=== PATIENT | male | born 1990 | race Caucasian/White ===

== ENCOUNTER 2018-08-02 22:25 | Emergency (ER) | payer BC, SELFPAY ==
[2018-08-02 22:28] VITALS: BP 155/84; PULSE 93; RESP 18; TEMP 36.7; O2SAT 96
--- NOTE | 2018-08-02 22:35 | DI.RAD_ITS ---
SYMPTOM/DIAGNOSIS: FELL, PAIN SACRUM AND COCCYX: Three views were obtained. The SI joints appear well maintained as visualized. There is no acute fracture seen.
--- NOTE | 2018-08-02 22:37 | ED.GENADUL_ITS ---
Discharge Plan Disposition Patient Disposition: HOME Condition: Improving Discharge Details Chief Complaint: Orthopedic Clinical Impression: Coccyx contusion Primary Care Provider: Russell Fernandes ED Provider: Jarret Sapp Home Meds and New Rx's Prescriptions: No Action No Known Home Meds RF: 0 Discharge Instructions Instructions: Contusion in Adults (ED) Additional Instructions: Please obtain an inflatable doughnut shaped cushion to ease pressure on her tailbone. May continue Tylenol and/or ibuprofen as needed for pain. Next dose tomorrow morning. Return for any acute concerns Medical Decision Making 27-year-old male presents with tailbone pain after slip and fall in driveway 1 week ago. No motor weakness or numbness. He is tender in the coccygeal region. Referred for Xray: No acute finding. Patient will use a inflatable donut to ease pressure on his sacrum. Discussed home management as well as follow-up with them. He is stable for outpatient trial at this time HPI General Mode of arrival: ambulatory . Date/Time Provider Initiated Documentation: 08/02/18 22:27 . Limitations to Documentation: no limitations . Information obtained by: patient and family . History of Present Illness 27 year old M presents to the emergency department with the chief complaint of Tailbone pain since fall, described as moderate, Quality is described as aching, and is localized to the back. Patient reports no radiation. Patient started experiencing this day(s) and it has been intermittent. No relieving factors improve symptom(s), No exacerbating factors reported . Patient notes no other symptoms.; denies chest pain and headaches. Patient did receive the following treatments prior to arrival, NSAID Related Data Home Medications Medication Instructions Recorded Confirmed Unknown [No Known Home Meds] 08/09/15 08/02/18 Allergies Allergy/AdvReac Type Severity Reaction Status Date / Time No Known Allergies Allergy Unverified 08/02/18 22:27 General Stated Complaint: Orthopedic HALEY: 4 Review of Systems Review of Systems No numbness, tingling, weakness. 6 systems reviewed and otherwise neg PFSH Family History Mother No problems noted. Father No problems noted. Grandfather Diabetes Heart disease Stroke Grandfather No problems noted. Grandmother No problems noted. Grandmother Neoplasm Son No problems noted. Social History Smoking/Tobacco Use Status: Current every day Tobacco Type: smokeless tobacco Alcohol Intake: never Drug use: Never Do you feel safe at home: Yes Do you feel safe in your relationship?: Yes Exam Narrative Exam Narrative: GEN: awake, alert, oriented 3. Pleasant, well groomed, interactive. HEAD: Normocephalic, atraumatic ENT: Mucous membranes moist, oropharynx unremarkable, External ear exam unremarkable EYES: PERRL, EOMI NECK: Full ROM, no YAMILA, no menigismus CHEST/RESP: Nontender ABDOMEN: Soft, nontender, no mass. +Bowel sounds. Back exam nontender with the exception of coccyx which is tender to palpation. EXT: Full ROM, no edema, no rash. Normal motor and gait Neuro: Grossly normal neurologic exam, conversant, interactive. Psych: Speech fluent, thoughts congruent, affect normal Course Vital Signs Temperature 36.7 C 08/02/18 22:28 Pulse 93 H 08/02/18 22:28 Respiratory Rate 18 08/02/18 22:28 Blood Pressure 155/84 H 08/02/18 22:28 Pulse Oximetry 96 08/02/18 22:28 Temperature 36.7 C 08/02/18 22:28 Temperature Source Temporal Artery Scan 08/02/18 22:28 Pulse 93 H 08/02/18 22:28 Respiratory Rate 18 08/02/18 22:28 Respiratory Effort 08/02/18 22:28 Blood Pressure 155/84 H 08/02/18 22:28 Blood Pressure Position Sitting 08/02/18 22:28 Pulse Oximetry 96 08/02/18 22:28 Oxygen Delivery Method Room Air 08/02/18 22:28 Oxygen Flow Rate 0 08/02/18 22:28 Pain Level 7 08/02/18 22:28
--- NOTE | 2018-08-02 23:02 | DI.VRAD_ITS ---
EXAM: XR Sacrum and Coccyx, 2 or More Views EXAM DATE/TIME: 08/02/2018 10:35 PM CLINICAL HISTORY: 27 years old, male; Pain; Pain in coccyx area; Patient HX: Pain after fall TECHNIQUE: Imaging protocol: XR of the sacrum and coccyx, 2 or more views. COMPARISON: No relevant prior studies available. FINDINGS: Bones/joints: Normal. No acute fracture. Soft tissues: Normal. IMPRESSION: No acute findings. Dictated and Authenticated by: Jacob Keller MD. Ordering:KIRAN Wheat MD
[2018-08-02] MEDS: Ketorolac 10 MG TAB PO (23:05)
== END 2018-08-02 23:06 | disposition home or self-care (01) ==
PROVIDERS: Emergency Provider Emergency Medicine; PCP Family Medicine
DX: S30.0XXA Contusion of lower back and pelvis, initial encounter (principal); W00.0XXA Fall on same level due to ice and snow, initial encounter
CPT/HCPCS: 99283; 72220

== ENCOUNTER 2019-08-18 11:24 | Emergency (ER) | payer BC, SELFPAY ==
[2019-08-18 11:29] VITALS: BP 152/80; PULSE 87; RESP 18; TEMP 36.2; O2SAT 98
--- NOTE | 2019-08-18 11:31 | ED.GENADUL_ITS ---
Discharge Plan Disposition Patient Disposition: HOME Condition: Good Discharge Details Chief Complaint: Orthopedic Clinical Impression: Right ankle sprain Primary Care Provider: Russell Fernandes ED Provider: Milad Ascencio Home Meds and New Rx's Prescriptions: No Action No Known Home Meds RF: 0 Discharge Instructions Instructions: Ankle Sprain (ED) Additional Instructions: At this time there is no evidence of fracture on your x-ray. Did recommend that you take 1000 mg of Tylenol every 6 hours and 800 mg of ibuprofen every 6 hours for control of pain and swelling. These are the maximum doses, do not increase it otherwise. Please use ice as often as possible,the crutches to take weight off the foot. You can also corn picker an ankle brace at the local pharmacies. I would expect your symptoms would improve over the next 7 to 14 days, however if they do not you may require further follow-up with an orthopedic brace maker. If you notice any worsening of your symptoms, or any new symptoms such as vomiting, diarrhea, fever, chills, shortness of breath, chest pain, numbness, weakness, or fainting , please return immediately to the emergency department for re evaluation. Please follow up with your primary care provider as soon as possible for reassessment and reevaluation. As always, it was a pleasure participating in your medical care today. Stand Alone Forms: Work Release Referrals: Russell Fernandes [Primary Care Provider] - Medical Decision Making 28-year-old male presents for right ankle pain. Yesterday evening he rolled his right ankle, causing pain in the lateral malleolus just inferior. Patient rolled his ankle yesterday, causing mild pain, minimal swelling, mild pain at the lateral malleoli, no evidence of deformity neurovascular compromise or other abnormality. Suspect sprain, will get x-ray to rule out acute fracture. Will give crutches 12:03 PM X-ray results are negative for acute fracture. Patient will be given crutches, recommend NSAIDs and ice at home. Discussed red flags which to return. I have extensively reviewed the treatment plan and discharge instructions with the patient. I have addressed all patient concerns at this time. The patient was made aware of what symptoms to monitor for that would warrant a return to the emergency department. Discussed the plan with the patient, they demonstrate verbal understanding and agreement with our assessment and plan at this time. EXAM: XR ANKLE RT COMPLETE CLINICAL HISTORY: right ankle pain after inversion. TECHNIQUE: 2D digital imaging was performed. COMPARISON: No exams were available for comparison FINDINGS: BONES: No acute fracture is identified. There is no evidence of bony destruction. There is a small enthesophyte at the Achilles insertion site. JOINTS: The ankle mortise is normally aligned. SOFT TISSUE: Normal. IMPRESSION: No acute fracture or dislocation. DATA REPOSITORY: RADIATION DOSE DELIVERED: [facility] General Date/Time Provider Initiated Documentation: 08/18/19 11:25 . HPI Narrative: 28-year-old male with no significant past medical history presents for right ankle pain. Last night patient slipped on the last step of a staircase, inverted his ankle, subsequently had pain in the lateral aspect. Pain is worsened with movement, and bearing weight. Improved by nothing. Denies numbness tingling or weakness. Denies any knee pain. No other complaints at this time. No other modifying factors. No recent NSAID therapy. Related Data Home Medications Medication Instructions Recorded Confirmed Unknown [No Known Home Meds] 08/09/15 08/18/19 Allergies Allergy/AdvReac Type Severity Reaction Status Date / Time No Known Allergies Allergy Unverified 08/18/19 11:32 General Stated Complaint: Orthopedic HALEY: 4 Review of Systems All systems reviewed & are unremarkable except as noted in HPI and below PFSH Family History Mother No problems noted. Father No problems noted. Grandfather Diabetes Heart disease Stroke Grandfather No problems noted. Grandmother No problems noted. Grandmother Neoplasm BREAST Son No problems noted. Social History Smoking/Tobacco Use Status: Current-Occasional Tobacco Type: smokeless tobacco Alcohol Intake: never Drug use: Never Do you feel safe at home: Yes Do you feel safe in your relationship?: Yes Exam Narrative Exam Narrative: 1.Const: Well-nourished, Well-developed, appearing stated age 2.Eyes: PERRL, no conjunctival injection, and symmetrical lids. 3.ENT: Atraumatic external nose and ears. Moist MM. Neck: Symmetric, trachea midline, No thyromegaly. 4.CVS: +S1/S2, No murmurs or gallops. Peripheral pulses 2+ and equal in all extremities. Brisk capillary refill in all extremities. 5.RESP: Unlabored respiratory effort. Clear to auscultation bilaterally. No wheezes rales or rhonchi 6.GI: Soft,Nondistended 7.MSK: Extremities are unremarkable. No evidence of dislocation, or gross deformity. Patient's right ankle demonstrates minimal swelling over the lateral malleolus, and mild tenderness the anterior and posterior aspect of the lateral malleolus just inferior to the base. No pain over the base of the foot, calcaneus, or toes. Patient is able to wiggle toes well, minimal pain with flexion extension, worse pain with eversion and inversion of the foot. The knee is stable to varus, valgus. No deformity. Patellar grind test is negative. Francheska test is negative for pain. No ttp to the patella, tibial plateau, or fibular head. 8.Skin: Warm, Dry. No rashes or lesions. 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 Sensation grossly intact, no focal neurologic deficits. 10.Psych: (AAO) x3. Appropriate mood and affect Course Vital Signs Vital signs: Vital Signs Temperature 36.2 C L 08/18/19 11:29 Pulse 87 08/18/19 11:29 Respiratory Rate 18 08/18/19 11:29 Blood Pressure 152/80 H 08/18/19 11:29 Pulse Oximetry 98 08/18/19 11:29 Temperature 36.2 C L 08/18/19 11:29 Temperature Source Skin 08/18/19 11:29 Pulse 87 08/18/19 11:29 Respiratory Rate 18 08/18/19 11:29 Blood Pressure 152/80 H 08/18/19 11:29 Blood Pressure Position Sitting 08/18/19 11:29 Pulse Oximetry 98 08/18/19 11:29
== END 2019-08-18 12:06 | disposition home or self-care (01) ==
PROVIDERS: Emergency Provider Student in an Organized Health Care Education/Training Program; PCP Family Medicine
DX: S93.401A Sprain of unspecified ligament of right ankle, initial encounter (principal); X50.1XXA Overexertion from prolonged static or awkward postures, initial encounter
CPT/HCPCS: 99283; 73610; E0114

== ENCOUNTER 2022-10-21 14:22 | Emergency (ER) | payer BC, SELFPAY ==
[2022-10-21 14:28] VITALS: BP 146/86; PULSE 103; RESP 19; TEMP 36.8; O2SAT 99
--- NOTE | 2022-10-21 15:00 | DI.RAD_ITS ---
Exam(s) XR ANKLE RT COMPLETE EXAM: XR ANKLE RT COMPLETE CLINICAL HISTORY: right ankle pain, lateral mal. TECHNIQUE: 2D digital imaging was performed. Three views. COMPARISON: CR XR ANKLE RT COMPLETE from 08/18/2019 FINDINGS: BONES: No acute fracture is present. No bony destructive lesion is seen. Spur at Achilles insertio n on the calcaneus. JOINTS: The ankle mortise is normally aligned. SOFT TISSUE: Normal. IMPRESSION: No acute abnormality. DATA REPOSITORY: RADIATION DOSE DELIVERED:
--- NOTE | 2022-10-21 15:07 | ED.GENADUL_ITS ---
Discharge Plan Disposition Patient Disposition: Home Discharge Details Chief Complaint: Orthopedic Clinical Impression: Ankle pain Primary Care Provider: Unknown,Unknown ED Provider: Harrison Prakash Home Meds and New Rx's Prescriptions: No Action No Known Home Meds Discharge Instructions Instructions: Ankle Sprain (ED) Additional Instructions: Please continue with ibuprofen and/or acetaminophen at home for pain and swelling. Ice and elevate limb. Rest. Please return to the emergency department for any worsening symptoms Stand Alone Forms: Work Release Medical Decision Making 32-year-old male presents with 3 days of ankle pain lateral aspect of right ankle, does not remember specific injury, no fevers chills nausea vomiting or systemic signs of illness, afebrile nontoxic range of motion intact strength and sensation intact soft compartments, slight induration overlying lateral malleoli region, Zavaleta's test showing intact Achilles function. Ambulatory without assistance. Consider sprain versus strain versus contusion versus must consider Lyme arthritis given single joint involvement without definitive injury pattern. Low suspicion for DVT or septic joint. Will obtain screening x-ray, tick panel, Toradol anti-inflammatory close reassessment likely home with return precautions 16: 13 resting comfortably no acute distress. X-ray negative for fracture or dislocation. Chronic appearing bone spur at Achilles insertion point on calcaneus. Plan will be to trial acetaminophen ibuprofen elevation ice at home, rest over the next couple of days, will wait for tick panel results to result; home care instructions and strict return precautions given HPI General Date/Time Provider Initiated Documentation: 10/21/22 14:57 . HPI Narrative: 32 yr old male present with right ankle pain for the past couple of days, does not remember specific injury. Pain to lateral aspect of ankle. Denies fevers chills nausea or vomiting. No other systemic signs of illness. He is able to walk and has been working on ankle Related Data Home Medications Medication Instructions Recorded Confirmed Unknown [No Known Home Meds] 08/09/15 10/21/22 Allergies Allergy/AdvReac Type Severity Reaction Status Date / Time No Known Allergies Allergy Unverified 10/21/22 14:31 General Stated Complaint: Orthopedic HALEY: 4 Review of Systems Narrative: Review of Systems Constitutional: negative Eyes: negative ENT: negative Cardiovascular: negative Respiratory: negative Gastrointestinal: negative : negative Musculoskeletal: Ankle pain Skin: negative Neurologic: negative Psych: negative PFSH All Active Problems (Updated 10/21/22 @ 16:15 by Harrison Prakash MD) Ankle pain (Acute) Family History Mother No problems noted. Father No problems noted. Grandfather Diabetes Heart disease Stroke Grandfather No problems noted. Grandmother No problems noted. Grandmother Neoplasm BREAST Son No problems noted. Social History Smoking/Tobacco Use Status: Current-Occasional Tobacco Type: smokeless tobacco Smoking risk assessment performed?: Yes Alcohol Intake: never Drug use: Never Substance use type: does not use Do you feel safe at home: Yes Do you feel safe in your relationship?: Yes Exam Narrative Exam Narrative: Physical Examination General: alert, awake, cooperative, resting comfortably, no acute distress Skin: no lesions, rashes or trauma appreciated Neuro: AAOx3, normal speech, moving all extremities Extremities: Full range of motion upper and lower extremities, flexion extension and ankle intact, Zavaleta's test normal for Achilles function, slight induration overlying lateral malleolus no fluctuance or lymphangitic streaking, warm well perfused extremity soft compartments, DP pulse intact sensation in lower extremity intact. Ambulatory without assistance. Course Vital Signs Vital signs: Vital Signs Temperature 36.8 C 10/21/22 14:28 Pulse 103 H 10/21/22 14:28 Respiratory Rate 10/21/22 14:28 Blood Pressure 146/86 H 10/21/22 14:28 Pulse Oximetry 99 10/21/22 14:28 Temperature 36.8 C 10/21/22 14:28 Temperature Source Temporal Artery Scan 10/21/22 14:28 Pulse 103 H 10/21/22 14:28 Respiratory Rate 10/21/22 14:28 Respiratory Effort Normal 10/21/22 14:30 Blood Pressure 146/86 H 10/21/22 14:28 Blood Pressure Position Sitting 10/21/22 14:28 Pulse Oximetry 99 10/21/22 14:28 Oxygen Delivery Method Room Air 10/21/22 14:28 Oxygen Flow Rate 0 10/21/22 14:28 Pain Level 5 10/21/22 14:28
[2022-10-21 16:29] VITALS: BP 138/80; PULSE 87; RESP 18; TEMP 36.2; O2SAT 98
[2022-10-23 11:28] LABS: Lyme Ab w Rflx to Lyme Confirm Negative (Negative)
[2022-10-25 08:29] LABS: Anaplasma phagocytophilum Negative (Negative); B. miyamotoi PCR Negative (Negative); Babesia divergens/MO-1 Negative (Negative); Babesia duncani Negative (Negative); Babesia microti Negative (Negative); Ehrlichia chaffeensis Negative (Negative); Ehrlichia ewingii/canis Negative (Negative); Ehrlichia muris eauclairensis Negative (Negative)
== END 2022-10-21 17:14 | disposition home or self-care (01) ==
PROVIDERS: Emergency Provider Emergency Medicine
DX: M25.571 Pain in right ankle and joints of right foot (principal)
CPT/HCPCS: 87798; 96372; 99284; 73610; 86618

== ENCOUNTER 2023-08-05 15:49 | Emergency (ER) | payer BC, SELFPAY ==
[2023-08-05 15:50] VITALS: BP 175/87; PULSE 101; RESP 20; TEMP 36.1; O2SAT 97
--- NOTE | 2023-08-05 16:00 | DI.RAD_ITS ---
Exam(s) XR ANKLE RT COMPLETE EXAM: XR ANKLE RT COMPLETE CLINICAL HISTORY: ankle swelling. TECHNIQUE: 2D digital imaging was performed of the right ankle. Three images were obtained. AP, la teral and oblique views were obtained. COMPARISON: CR XR ANKLE RT COMPLETE from 10/21/2022 FINDINGS: BONES: No acute fracture is present. No bony destructive lesion is seen. There is a small enthesophy te at the posterior calcaneus. JOINTS: The ankle mortise is normally aligned. SOFT TISSUE: Soft tissue swelling about the ankle particularly medially. IMPRESSION: No acute fracture or dislocation. DATA REPOSITORY: RADIATION DOSE DELIVERED:
[2023-08-05 16:30] LABS: Abs Immature Grans 0.04 10^3/uL (0.0-0.06); Absolute Basophil Count 0.05 10^3/uL (0.0-0.2); Absolute Eosinophil Count 0.19 10^3/uL (0.0-0.7); Absolute Lymphocyte Count 2.25 10^3/uL (1.2-3.4); Absolute Neutrophil Count 9.38 10^3/uL (1.2-6.7); Basophils % 0.4; Eosinophils % 1.5; HCT 46.9 % (40.0-50.0); HGB 16.4 g/dL (13.5-17.5); Immature Grans % 0.3; Lymphocytes % 17.9; MCH 32.3 pg (27.0-33.0); MCV 92 fL (80-95); MPV 10.3 fL (8.0-11.0); Monocytes % 5.3; Neutrophils % 74.6; Platelet Count 282 10^3/uL (130-400); RBC 5.08 10^6/uL (4.36-5.78); RDW 12.3 % (11.8-14.1); RDW-SD 41.9 fL; WBC 12.57 10^3/uL (4.4-10.8)
[2023-08-05 16:31] LABS: Absolute Monocyte Count 0.67 10^3/uL (0.1-0.8); ESR 17 mm/hr (0-15)
[2023-08-05 16:43] LABS: C-Reactive Protein 2.32 mg/dL (<or=0.5); Uric Acid 9.1 mg/dL (3.5-7.2)
--- NOTE | 2023-08-05 17:04 | NUR.NOTE ---
Referral given to Care Managers to help Pt find a Primary Care Provider as soon as available.
[2023-08-05 17:22] VITALS: BP 161/78; PULSE 98; O2SAT 97
--- NOTE | 2023-08-05 20:32 | ED.GENADUL_ITS ---
Discharge Plan Disposition Patient Disposition: Home Condition: Stable Discharge Details Clinical Impression: Gout, Acute ankle pain Primary Care Provider: Unknown,Unknown ED Provider: Yin Lewis Home Meds and New Rx's Prescriptions: New colchicine 0.6 mg capsule 1.2 mg PO DAILY Qty: 3 0RF Rx Instructions: take 2 caps x1 and them 1 cap one hour later Discharge Instructions Instructions: Gout (ED) Additional Instructions: take colchicine 2 tabs x1 and then 1 tab one hour later wear boot as needed for comfort should you have persistent pain and swelling> 3 days or develop redness, swelling, worsening pain or fever, please return immediately for reassessment I placed you on the list to follow-up with her primary care physician Refer to the enclose packet information about diet changes Stand Alone Forms: Work Release Discharge Data Discharge Date/Time-TO BE ENTERED AT DEPARTURE: 08/05/23 17:25 HPI General Date/Time Provider Initiated Documentation: 08/05/23 16:01 . HPI Narrative: This 32-year-old male presents with report of right ankle pain that started over the weekend came on suddenly and worse today. Denies any fever or chills. States pain with ambulation and movement. States he had a similar episode several months ago. Denies known trauma. Denies history of illicit drug use or alcohol consumption. Does not have a PCP. Eats red meat frequently. Denies tobacco abuse. Denies any calf pain or swelling. Related Data Home Medications Medication Instructions Recorded Confirmed colchicine 0.6 mg capsule 1.2 mg (2 x 0.6 mg) PO DAILY #3 08/05/23 caps Previous Rx's Medication Instructions Recorded colchicine 0.6 mg capsule 1.2 mg (2 x 0.6 mg) PO DAILY #3 08/05/23 caps Allergies Allergy/AdvReac Type Severity Reaction Status Date / Time No Known Allergies Allergy Unverified 08/05/23 15:52 General Stated Complaint: Orthopedic HALEY: 4 Course Vital Signs Vital signs: Vital Signs Temperature 36.1 C L 08/05/23 15:50 Pulse 101 H 08/05/23 15:50 Respiratory Rate 20 08/05/23 15:50 Blood Pressure 175/87 H 08/05/23 15:50 Pulse Oximetry 97 08/05/23 15:50 Temperature 36.1 C L 08/05/23 15:50 Temperature Source Skin 08/05/23 15:50 Pulse 98 H 08/05/23 17:22 Respiratory Rate 20 08/05/23 15:50 Respiratory Effort Normal 08/05/23 15:55 Blood Pressure 161/78 H 08/05/23 17:22 Blood Pressure Position Sitting 08/05/23 15:50 Pulse Oximetry 97 08/05/23 17:22 Oxygen Delivery Method Room Air 08/05/23 15:50 Oxygen Flow Rate 0 08/05/23 15:50 Pain Level 5 08/05/23 17:22 Lab/Test Results Lab/Test Results: Laboratory Tests Range/Units 08/05/23 16:22 WBC (4.4-10.8) 10^3/uL 12.57 H RBC (4.36-5.78) 10^6/uL 5.08 Hgb (13.5-17.5) g/dL 16.4 Hct (40.0-50.0) % 46.9 MCV (80-95) fL 92 MCH (27.0-33.0) pg 32.3 MCHC (32.0-36.0) % 35.0 RDW (11.8-14.1) % 12.3 Plt Count (130-400) 10^3/uL 282 MPV (8.0-11.0) fL 10.3 Immature Gran % 0.3 Neutrophils % 74.6 Lymphocytes % 17.9 Monocytes % 5.3 Eosinophils % 1.5 Basophils % 0.4 Nucleated RBC % (0.0-0.3) % 0.0 Absolute Neutrophils (1.2-6.7) 10^3/uL 9.38 H Absolute Lymphocytes (1.2-3.4) 10^3/uL 2.25 Absolute Monocytes (0.1-0.8) 10^3/uL 0.67 Absolute Eosinophils (0.0-0.7) 10^3/uL 0.19 Absolute Basophils (0.0-0.2) 10^3/uL 0.05 ESR (0-15) mm/hr 17 H Uric Acid (3.5-7.2) mg/dL 9.1 H C-Reactive Protein (<or=0.5) mg/dL 2.32 H Medical Decision Making 32-year-old male no acute distress, hypertensive, presenting with right ankle pain, swelling to right ankle joint, no redness, no evidence of septic joint clinically Had a Lyme test last time which was negative Will check blood work, CRP and sed rate mildly elevated, uric acid actually elevated, concern for gout, will treat with colchicine and patient will need reassessment in 48 hours, again the suspicion clinically for bacterial source ostephyte on x-ray without evidence of obvious effusion or fracture Return precautions reviewed and patient expressed understanding Quality:SDOH Health Related Social Needs: No Data to Display PFSH All Active Problems (Updated 08/05/23 @ 17:04 by GENET Tai) Acute ankle pain (Acute) Gout (Chronic) Family History Mother No problems noted. Father No problems noted. Grandfather Diabetes Heart disease Stroke Grandfather No problems noted. Grandmother No problems noted. Grandmother Neoplasm BREAST Son No problems noted. Social History Smoking/Tobacco Use Status: Never Smoking risk assessment performed?: Yes Alcohol Intake: never Drug use: Never Substance use type: does not use Housing: house Do you feel safe at home: Yes Do you feel safe in your relationship?: Yes
== END 2023-08-05 17:25 | disposition home or self-care (01) ==
PROVIDERS: Emergency Provider Physician Assistant
DX: M25.571 Pain in right ankle and joints of right foot (principal); M10.9 Gout, unspecified
CPT/HCPCS: 85652; 99284; 73610; 84550; 85025; 86140

== ENCOUNTER 2024-12-19 19:27 | Emergency (ER) | payer BC, SELFPAY ==
[2024-12-19 19:35] VITALS: BP 146/67; PULSE 87; RESP 16; TEMP 36.3; O2SAT 98
--- NOTE | 2024-12-19 19:54 | ED.GENADUL_ITS ---
Discharge Plan Disposition Patient Disposition: Home Condition: Stable Discharge Details Clinical Impression: Cellulitis of neck Primary Care Provider: None,None ED Provider: Geno Cantu Home Meds and New Rx's Prescriptions: New cephalexin 500 mg capsule 500 mg PO QID 7 Days Qty: 28 0RF sulfamethoxazole-trimethoprim [Bactrim DS] 800-160 mg tablet 1 tab PO Q12H 7 Days Qty: 14 0RF Discharge Instructions Instructions: Cellulitis (Skin Infection), Adult ED Additional Instructions: You were seen in the emergency department today for evaluation of a swelling on your neck that is concerning for cellulitis. In our department had a full physical examination performed, and we are starting you on antibiotics. Please take all of this antibiotic until it is gone, even if you start to feel better. You have been referred to establish with a primary care provider. You can use Tylenol and ibuprofen as needed for pain. Please return to the emergency department if you develop a fever or chills that do not respond to medicines, cannot move your neck, or have any other symptoms that cause you concern. Thank you for allowing us to be part of your care. Discharge Data Discharge Date/Time-TO BE ENTERED AT DEPARTURE: 12/19/24 20:12 HPI General Mode of arrival: ambulatory . Date/Time Provider Initiated Documentation: 12/19/24 19:49 . Limitations to Documentation: no limitations . Information obtained by: patient, family and old records reviewed . HPI Narrative: This is a 34-year-old male patient without significant past medical history presenting for evaluation of a swelling on the side of his neck. 3 days ago he had a pimple in that area and has since increased in size. He can feel tenderness when he touches it or moves his neck to the extremes of rotation. Has no personal history of skin or soft tissue infections, denies fevers or chills. He has not noted any drainage or discharge from the area. Does not report any trauma to the area, has not had shaving in that area. Has not tried any medications at home for management of symptoms. This is an isolated complaint and the patient is otherwise in his normal state of health with no acute concerns. Related Data Home Medications ?Medication ?Instructions ?Recorded ?Confirmed cephalexin 500 mg capsule 500 mg PO QID 7 days #28 cap s 12/19/24 sulfamethoxazole 800 1 tab PO Q12H 7 days #14 tab s 12/19/24 mg-trimethoprim 160 mg tablet (Bactrim DS) Previous Rx's ?Medication ?Instructions ?Recorded cephalexin 500 mg capsule 500 mg PO QID 7 days #28 cap s 12/19/24 sulfamethoxazole 800 1 tab PO Q12H 7 days #14 tab s 12/19/24 mg-trimethoprim 160 mg tablet (Bactrim DS) Allergies Allergy/AdvReac Type Severity Reaction Status Date / Time No Known Allergies Allergy Unverified 12/19/24 19:37 General Stated Complaint: RashLesion HALEY: 4 Exam Narrative Exam Narrative: Gen: Awake and alert, in no apparent distress HEENT: Non-icteric sclera Neck: Supple, the patient has an approximately 2 cm area of induration with a pustule at the top that is not draining. No fluctuance palpable, minimal redness and warmth compared to the contralateral skin. Full range of motion of the neck Lungs: No apparent respiratory distress, normal respiratory effort. CV: Appears well perfused Abdomen: Non-distended MSK: Moves 4 extremities without apparent limitation in ROM Skin: Visualized skin without rashes, cyanosis. Neuro: Normal Gait, no obvious focal deficits or facial asymmetry. Speaks in full, clear sentences. Psych: Appropriate for situation. Course Vital Signs Vital signs: Vital Signs Temperature 36.3 C L 12/19/24 19:35 Pulse 87 12/19/24 19:35 Respiratory Rate 16 12/19/24 19:35 Blood Pressure 146/67 H 12/19/24 19:35 Pulse Oximetry 98 12/19/24 19:35 Temperature 36.3 C L 12/19/24 19:35 Pulse 87 12/19/24 19:35 Respiratory Rate 16 12/19/24 19:35 Blood Pressure 146/67 H 12/19/24 19:35 Pulse Oximetry 98 12/19/24 19:35 Pain Level 3 12/19/24 19:35 Medical Decision Making This is a 34-year-old male patient presenting for evaluation of a skin infection. My exam is most concerning for cellulitis. My differential also included abscess of the patient has no fluctuance and the area involved is quite small. There is no pulsatility or hemodynamic instability to increase my concern for pseudoaneurysm or vascular abnormality. The patient is systemically well and does not meet sepsis criteria and has a low risk for bacteremia given the brief duration of symptoms. Given the concern for cellulitis we will start the patient on cephalexin and Bactrim for staph and strep coverage. I provided the patient with a referral to establish with primary care as he does not have a primary care provider, and counseled him on conservative pain management with Tylenol and ibuprofen. At this time, the patient has had a full medical evaluation and is safe for discharge to home. They are hemodynamically stable, ambulatory, and tolerating PO. They are understanding of the follow-up plan and return precautions. They left our facility without incident. Geno Cantu MD [facility] All Active Problems (Updated 12/19/24 @ 19:55 by Geno Cantu MD) Cellulitis of neck (Acute) Family History Mother No problems noted. Father No problems noted. Grandfather Diabetes Heart disease Stroke Grandfather No problems noted. Grandmother No problems noted. Grandmother Neoplasm BREAST Son No problems noted. Social History Smoking/Tobacco Use Status: Never Smoking risk assessment performed?: Yes Alcohol Intake: never Drug use: Never Substance use type: does not use Housing: house Do you feel safe at home: Yes Do you feel safe in your relationship?: Yes
[2024-12-19] MEDS: Cephalexin 500 MG CAP, 4 CAPS/BTL PO (20:09)
[2024-12-19] MEDS: Sulfameth/Trimeth DS, 2 TABS/BTL 1 TAB PO (20:10)
== END 2024-12-19 20:12 | disposition home or self-care (01) ==
PROVIDERS: Emergency Provider Emergency Medicine
DX: L03.221 Cellulitis of neck (principal)
CPT/HCPCS: 99283 ×2

== ENCOUNTER 2025-02-25 17:56 | Emergency (ER) | payer BC, SELFPAY ==
[2025-02-25 18:06] VITALS: BP 154/105; PULSE 92; RESP 18; TEMP 37.1; O2SAT 98
--- NOTE | 2025-02-25 18:15 | DI.RAD_ITS ---
Exam(s) XR KNEE RT 3V AP,LAT,ROLY EXAM: XR KNEE RT 3V AP,LAT,ROLY CLINICAL HISTORY: R knee pain. TECHNIQUE: 2D digital imaging was performed of the right knee. Three views obtained. AP, lateral and PA tunnel views were obtained. COMPARISON: No exams were available for comparison FINDINGS: BONES: No acute fracture is present. No bony destructive lesion is seen. JOINTS: The knee is normally aligned. There is a small joint effusion. SOFT TISSUE: Normal. IMPRESSION: 1. There is no acute fracture or dislocation. 2. Small joint effusion. 3. The preliminary [facility] report was reviewed. DATA REPOSITORY: RADIATION DOSE DELIVERED:
--- NOTE | 2025-02-25 18:15 | W.ED.GENAD ---
Discharge Plan Disposition Patient Disposition: Home Condition: Stable Discharge Details Clinical Impression: Right knee pain Primary Care Provider: None,None ED Provider: Milad Valente Home Meds and New Rx's Prescriptions: No Action No Known Home Meds Discharge Instructions Instructions: Knee Pain ED Additional Instructions: You were seen in the emergency department for your right knee pain, your inflammatory markers are just barely above normal, your x-ray is normal and your uric acid level is slightly elevated which can be seen in acute gout flare but is not definitive for diagnosis. You need to start taking for 140 mg of Aleve twice per day and follow-up with your primary care provider as you may need further medications to care gout flare like steroids or colchicine, please return for any severe increase in swelling of the knee especially with redness. Discharge Data Discharge Date/Time-TO BE ENTERED AT DEPARTURE: 02/25/25 20:48 HPI General Date/Time Provider Initiated Documentation: 02/25/25 18:15. HPI Narrative: 34 year-old male presents to ED today by POV/ambulating with his family with a chief complaint of R knee pain- feels it may be acute gout flare with onset yesterday morning. Quality described as sharp pain in R knee, worse with weight-bearing, no radiation to redness, swelling, fever, numbness/tingling distally, hip pain. Severity is described as severe at times. Palliating factors include nothing specific attempted. Provoking factors include patient does not follow a gout diet. Patient not anticoagulated. Related Data Home Medications Medication Instructions Recorded Confirmed Unknown [No Known Home Meds] 02/25/25 02/25/25 Allergies Allergy/AdvReac Type Severity Reaction Status Date / Time No Known Allergies Allergy Unverified 02/25/25 18:09 General Stated Complaint: Orthopedic HALEY: 3 Review of Systems All systems reviewed & are unremarkable except as noted in HPI and below Exam Narrative Exam Narrative: GENERAL APPEARANCE: Well-nourished, non-toxic, awake and alert, atraumatic, no acute distress. SKIN: Warm, pink, dry, intact, without rashes/lesions/ulcerations. HEAD: Normocephalic, atraumatic, normal hair distribution for gender/age. EYES: Normal conjunctiva, no exudates on lids/lashes. ENT: Nares patent, no circumoral cyanosis, no facial swelling NECK: Supple, trachea midline, painless cervical ROM. LUNGS/CHEST: Non-labored respirations, normal A/P diameter, symmetrical expansion, no chest wall deformity HEART (CV/PV): No peripheral edema, no JVD. ABDOMEN: Soft, non-distended, no guarding. MSK: Normal ROM, no swelling/deformity to bilateral UEs or LEs- R knee tender to touch, no warmth or erythema, able to ambulate, no gross swelling, no ligamentous laxity with varus/valgus forces/anterior drawer, MacMurray negative, moving all extremities without weakness, no cyanosis, spine midline without tenderness, normal curvature. NEURO: Mental Status AAOx4 - alert to person, place, time, events No facial droop, no forehead involvement. Motor: No focal weakness - strength 5/5 in bilateral UEs and LEs, proximal and distal, symmetric. Sensory: sensation intact to light touch globally. Gait normal: patient ambulated without ataxia into ED room. PSYCH: euthymic, cooperative, pleasant, appropriate speech Course Vital Signs Vital signs: Vital Signs Temperature 37.1 C 02/25/25 18:06 Pulse 92 H 02/25/25 18:06 Respiratory Rate 18 02/25/25 18:06 Blood Pressure 154/105 H 02/25/25 18:06 Pulse Oximetry 98 02/25/25 18:06 Temperature 37.1 C 02/25/25 18:06 Temperature Source Tympanic 02/25/25 18:06 Pulse 92 H 02/25/25 18:06 Respiratory Rate 18 02/25/25 18:06 Blood Pressure 154/105 H 02/25/25 18:06 Pulse Oximetry 98 02/25/25 18:06 Oxygen Delivery Method Room Air 02/25/25 18:06 Oxygen Flow Rate 0 02/25/25 18:06 Pain Level 8 02/25/25 18:06 Medical Decision Making This dictation utilizes [id number] dictation software and may contain unedited grammatical errors. 34 year-old male presents to ED today by POV/ambulating with his family with a chief complaint of R knee pain- feels it may be acute gout flare with onset yesterday morning. Quality described as sharp pain in R knee, worse with weight-bearing, no radiation to redness, swelling, fever, numbness/tingling distally, hip pain. Severity is described as severe at times. Palliating factors include nothing specific attempted. Provoking factors include patient does not follow a gout diet. Patients' medical history: History of gout. Family and social history: Denies significant alcohol use, eats normal diet. Pertinent exam findings / vital signs include right knee tenderness, no ligamentous laxity with varus/valgus forces or anterior drawer, negative Francheska, no pain with passive range of motion, no erythema or warmth to touch. Differential / pathologies of concern include gout flare, sprain or strain, internal derangement of knee, less likely fracture, not septic arthritis. Diagnostic studies of: - CBC, CMP, CRP/ESR, uric acid level, XR R knee. - CRP mildly elevated at 2.0, ESR 16 just above upper limit of normal - CBC shows a nonspecific leukocytosis of 13.8 without left shift - CMP shows no actionable abnormality with mildly elevated LFTs - Uric acid level is elevated at 8.5 Interventions of: - 500 mg naproxen. ED Course/Assessment/Plan: 34-year-old male who has a history of gout presents with what feels like a gout flare to the right knee with pain with weightbearing, no evidence of septic arthritis or redness or infection, x-ray is unremarkable and his inflammatory markers are just above normal with a slightly elevated uric acid not to the point that it has been elevated in the past. I counseled him to start taking 2 Aleve twice daily and follow-up with his primary care provider with strict return criteria for any increasing size of his knee especially with redness or warmth to touch, pain with passive range of motion. Findings not consistent with sprain/strain, fracture, septic arthritis. Disposition of right knee pain. Patient verbalized understanding of the plan and return to ED criteria and engaged in shared decision making. Medical Records Medical records reviewed: Yes I reviewed the patient's medical records. Imaging Data Radiologic Study: Attestation: I personally reviewed and interpreted this imaging study as follows: Imaging: X-Ray Radiologist's impression: Exam: XR Right Knee Exam date and time: 02/25/2025 6:41 PM Age: 34 years old Clinical indication: Pain; Knee; Right; Additional info: R knee pain TECHNIQUE: Imaging protocol: Radiologic exam of the right knee. Views: 3 views. Total images: 3 COMPARISON: CR XR ANKLE RT COMPLETE 08/05/2023 4:36 PM FINDINGS: Bones/joints: No bony or joint space abnormality. No fracture. Minimal knee effusion. Soft tissues: Unremarkable. IMPRESSION: No acute findings. Dictated and Authenticated by: Jarret Booth MD. Lab Data Lab results reviewed: Yes I reviewed the patient's lab results. Labs: Laboratory Tests Range/Units 02/25/25 02/25/25 02/25/25 18:16 18:35 19:55 WBC Cancelled 13.83 H RBC Cancelled 5.03 Hgb Cancelled 16.4 Hct Cancelled 46.5 MCV Cancelled 92 MCH Cancelled 32.6 MCHC Cancelled 35.3 RDW Cancelled 12.6 Plt Count Cancelled 271 MPV Cancelled 10.7 Immature Gran % Cancelled 0.2 Neutrophils % Cancelled 62.6 Band Neutrophils % Cancelled Lymphocytes % Cancelled 25.1 Atypical Lymphs % Cancelled Monocytes % Cancelled 10.3 Eosinophils % Cancelled 1.3 Basophils % Cancelled 0.5 Metamyelocytes % Cancelled Myelocytes % Cancelled Promyelocytes % Cancelled Other Cells % Cancelled Nucleated RBC % Cancelled 0.0 Absolute Neutrophils Cancelled 8.66 H Absolute Lymphocytes Cancelled 3.47 H Absolute Monocytes Cancelled 1.42 H Absolute Eosinophils Cancelled 0.18 Absolute Basophils Cancelled 0.07 RBC Morphology Cancelled Polychromasia Cancelled Hypochromasia Cancelled Poikilocytosis Cancelled Basophilic Stippling Cancelled Anisocytosis Cancelled Microcytosis Cancelled Macrocytosis Cancelled Spherocytes Cancelled Tear Drop Cells Cancelled Ovalocytes Cancelled Stomatocytes Cancelled [place] Bodies Cancelled [place] Cells/Echinocytes Cancelled Acanthocytes (Spur) Cancelled Schistocytes Cancelled ESR Cancelled 16 H Sodium (136-145) mmol/L 140 Potassium (3.5-5.1) mmol/L 4.3 Chloride (98-107) mmol/L 104 Carbon Dioxide (21.0-32.0) mmol/L 28.4 Anion Gap (3-11) mmol/L 7.6 BUN (7-18) mg/dL 10 Creatinine (0.70-1.30) mg/dL 0.8 Est GFR (CKD-EPI 2020) (mL/min/1.73m2) 120.59 Glucose (74-106) mg/dL 73 L Uric Acid (3.5-7.2) mg/dL 8.5 H Calcium (8.5-10.1) mg/dL 10.2 H Total Bilirubin (0.2-1.0) mg/dL 0.8 AST (15-37) U/L 52 H ALT (16-63) U/L 95 H Alkaline Phosphatase (46-116) U/L 104 C-Reactive Protein (<or=0.5) mg/dL 2.00 H Total Protein (6.4-8.2) g/dL 8.2 Albumin (3.4-5.0) g/dL 3.8 PFSH All Active Problems (Updated 02/25/25 @ 20:35 by GENET Jacobs) Right knee pain (Acute) Family History Mother No problems noted. Father No problems noted. Grandfather Diabetes Heart disease Stroke Grandfather No problems noted. Grandmother No problems noted. Grandmother Neoplasm BREAST Son No problems noted. Social History Smoking/Tobacco Use Status: Never Smoking risk assessment performed?: Yes Alcohol Intake: never Drug use: Never Substance use type: does not use Housing: house Do you feel safe at home: Yes Do you feel safe in your relationship?: Yes
[2025-02-25 19:10] LABS: ALT 95 U/L (16-63); AST 52 U/L (15-37); Albumin 3.8 g/dL (3.4-5.0); Alkaline Phosphatase 104 U/L (46-116); Anion Gap 7.6 mmol/L (3-11); BUN 10 mg/dL (7-18); Bilirubin, Total 0.8 mg/dL (0.2-1.0); C-Reactive Protein 2.00 mg/dL (<or=0.5); CO2 28.4 mmol/L (21.0-32.0); Calcium 10.2 mg/dL (8.5-10.1); Chloride 104 mmol/L (98-107); Glucose 73 mg/dL (74-106); Potassium 4.3 mmol/L (3.5-5.1); Sodium 140 mmol/L (136-145); Total Protein 8.2 g/dL (6.4-8.2); Uric Acid 8.5 mg/dL (3.5-7.2)
--- NOTE | 2025-02-25 19:36 | DI.[facility]AD_ITS ---
PROCEDURE INFORMATION: Exam: XR Right Knee Exam date and time: 02/25/2025 6:41 PM Age: 34 years old Clinical indication: Pain; Knee; Right; Additional info: R knee pain TECHNIQUE: Imaging protocol: Radiologic exam of the right knee. Views: 3 views. Total images: 3 COMPARISON: CR XR ANKLE RT COMPLETE 08/05/2023 4:36 PM FINDINGS: Bones/joints: No bony or joint space abnormality. No fracture. Minimal knee effusion. Soft tissues: Unremarkable. IMPRESSION: No acute findings. Dictated and Authenticated by: Jarret Booth MD. Orderin Sidra Stinson MD
[2025-02-25 20:08] LABS: Abs Immature Grans 0.03 10^3/uL (0.0-0.06); HCT 46.5 % (40.0-50.0); HGB 16.4 g/dL (13.5-17.5); Immature Grans % 0.2 %; MCH 32.6 pg (27.0-33.0); MCHC 35.3 % (32.0-36.0); MCV 92 fL (80-95); MPV 10.7 fL (8.0-11.0); Platelet Count 271 10^3/uL (130-400); RBC 5.03 10^6/uL (4.36-5.78); RDW 12.6 % (11.8-14.1); RDW-SD 42.6 fL; WBC 13.83 10^3/uL (4.4-10.8)
[2025-02-25 20:09] LABS: ESR 16 mm/hr (0-15)
[2025-02-25] MEDS: Naproxen 500 MG TAB PO (20:46)
[2025-02-25 20:47] VITALS: BP 149/102; PULSE 78; RESP 17; TEMP 36.6; O2SAT 96
== END 2025-02-25 20:48 | disposition home or self-care (01) ==
PROVIDERS: Emergency Provider Physician Assistant
DX: M25.561 Pain in right knee (principal)
CPT/HCPCS: 99283; 99284; 73562; 80053; 85652; 84550; 85025; 86140